=== PATIENT | female | born 1985 | race Caucasian/White ===

== ENCOUNTER 2017-03-29 18:16 | Emergency (ER) | payer OTHER ==
--- NOTE | ~2017-03-29 | CR21 ---
[facility]. [facility] A Service of [facility] & [facility] RADIOLOGY TEXT RESULTS PATIENT: SIMONA ABEBE LOCATION: SED : 83 UNIT #: [id number] AGE: [address]: BILL EL SEX: F ORDER DR: [id number] [place] [id number] E MR#: [id number] Acc #: [id number] NAME: SIMONA ABEBE : 1985 SEX: F STUDY DATE/TIME: 03/29/2017 18:51 UNIT: SED ROOM: STUDY DESCRIPTION: CR Ankle Min 3 Views Rt Attending Physician: Bill El Ordering Physician: Physician Non-Staff Primary Care Physician: [facility] MEDICAL IMAGING REPORT This report is preliminary unless electronic signature is present. EXAM Right ankle, 03/29 INDICATION Ankle pain since fall yesterday. FINDINGS 3 views of the right ankle were obtained. There is lateral soft tissue swelling. No fracture or malalignment is seen. The mortise is intact. IMPRESSION Lateral soft tissue swelling without acute fracture. Dictated by... Song Gross Jr., M.D. THIS IS AN ELECTRONICALLY VERIFIED REPORT Song Gross Jr., M.D. at 03/31/2017 7:35 AM JORDY/julián TD: 03/30/2017 05:29 JOB #: [id number] MEDICAL IMAGING REPORT Page 1 of 1
--- NOTE | ~2017-03-29 | CR252 ---
[facility]. [facility] A Service of [facility] & [facility] RADIOLOGY TEXT RESULTS PATIENT: SIMONA ABEBE LOCATION: SED : [birth year] UNIT #: [id number] AGE: [address]: BILL EL SEX: F ORDER DR: [id number] [place] [address] [id number] MR#: [id number] Acc #: [id number] NAME: SIMONA ABEBE : 1985 SEX: F STUDY DATE/TIME: 03/29/2017 18:51 UNIT: SED ROOM: STUDY DESCRIPTION: CR Tibia and Fibula 2 Views Lt Attending Physician: Bill El Ordering Physician: Physician Non-Staff Primary Care Physician: [facility] MEDICAL IMAGING REPORT This report is preliminary unless electronic signature is present. EXAM Left tib-fib, 03/29 INDICATION Leg pain after falling yesterday. FINDINGS There is no evidence of fracture, dislocation, or radiopaque foreign body. IMPRESSION Normal tibia and fibula. Dictated by... Song Gross Jr., M.D. THIS IS AN ELECTRONICALLY VERIFIED REPORT Song Gross Jr., M.D. at 03/31/2017 7:35 AM JORDY/julián TD: 03/30/2017 05:27 JOB #: [id number] MEDICAL IMAGING REPORT Page 1 of 1
--- NOTE | ~2017-03-29 | CR20 ---
[facility]. [facility] A Service of [facility] & [facility] RADIOLOGY TEXT RESULTS PATIENT: SIMONA ABEBE LOCATION: SED : [birth year] UNIT #: [id number] AGE: [address]: BILL EL SEX: F ORDER DR: [id number] [place] [address] [id number] E MR#: [id number] Acc #: [id number] NAME: SIMONA ABEBE : 1985 SEX: F STUDY DATE/TIME: 03/29/2017 18:51 UNIT: SED ROOM: STUDY DESCRIPTION: CR Ankle Min 3 Views Lt Attending Physician: Bill El Ordering Physician: Physician Non-Staff Primary Care Physician: [facility] MEDICAL IMAGING REPORT This report is preliminary unless electronic signature is present. EXAM Left ankle, 03/29 INDICATION Ankle pain after fall yesterday. FINDINGS AP, lateral, and oblique projections of the ankle show satisfactory integrity of the joint mortise with a smooth articular surface. There is no identifiable fracture, dislocation, or radiopaque foreign body. IMPRESSION Normal ankle. Dictated by... Song Gross Jr., M.D. THIS IS AN ELECTRONICALLY VERIFIED REPORT Song Gross Jr., M.D. at 03/31/2017 7:35 AM JORDY/julián TD: 03/30/2017 05:28 JOB #: [id number] MEDICAL IMAGING REPORT Page 1 of 1
[~2017-03-29 18:16] MED LIST: BENTYL20 MG PO; NAPROSYN500 MG PO; NO MEDICATIONS
== END 2017-03-29 20:02 | disposition home or self-care (01) ==
LOC: SED 18:16
DX: S93.401A Sprain of unspecified ligament of right ankle, initial encounter (principal); S93.402A Sprain of unspecified ligament of left ankle, initial encounter; S80.12XA Contusion of left lower leg, initial encounter; F17.210 Nicotine dependence, cigarettes, uncomplicated; V86.99XA Unspecified occupant of other special all-terrain or other off-road motor vehicle injured in nontraffic accident, initial encounter; Y92.89 Other specified places as the place of occurrence of the external cause
CPT/HCPCS: 29540; 73590; 73610; 99284